=== PATIENT | male | born 1960 | race Native Hawaiian/Other Pacific Islander ===

== ENCOUNTER 2018-04-04 00:14 | Observation (INO) | payer OTHER ==
[~2018-04-04] VITALS: Ht 175.3 cm; Wt 92.3 kg
[2018-04-04] VITALS (9 sets, daily range): BP systolic 168–259; BP diastolic 85–152; TEMP 97.3–98.6; Ht 175.3 cm; Wt 92.3 kg
[2018-04-04 01:10] LABS: PLATELET COUNT 180 K/uL (142-355)
[2018-04-04 01:19] LABS: POTASSIUM 3.5 mmol/L (3.6-5.2)
--- NOTE | 2018-04-04 03:05 | NUR ---
RECEIVED FROM ER VIA WC. ALERT AND ORIENTED X 3. EDUCATION GIVEN REGARDING CALL LIGHT AND BED CONTROLS. INSTRUCTED TO KEEP BED IN LOW POSITION. PATIENT VERBALIZED UNDERSTANDING. 20G TO RAC INTACT WITH NS BOLUS INFUSING PRESENTLY. 18FR FC TO BSC DRAINING RED CLODY URINE. FAMILY IS AT BEDSIDE. REFER TO ADMISSION ASSESSMENT FOR FURTHER DETAILS.
--- NOTE | 2018-04-04 03:40 | NUR ---
PATIENT'S BP IS 203/[address] ESCALONA NOTIFIED. NO NEW ORDERS RECEIVED. WILL CONTINUE TO MONITOR.
[2018-04-04 05:40] LABS: PLATELET COUNT 175 K/uL (142-355)
[2018-04-04 05:46] LABS: POTASSIUM 3.7 mmol/L (3.6-5.2)
--- NOTE | 2018-04-04 15:05 | NUR ---
LAMBERT D/C PER PT REQUEST AND PHYSCIAN ORDERS. URINE DARK RED. NO OTHER APPARENT PROBLEMS NOTED. WILL CONINUE TO MONITER
--- NOTE | 2018-04-04 18:39 | NUR ---
PT BP 204/118. BP REPORTED CHANCE LILLY. CARON ORDERED HCTZ TO START AT 2100. SHALINI STATES TO USE CLONIDINE LAST RESORT SO REOUND HYPERTENSION DOES NOT OCCUR. WILL CONTINE TO MONITER PT.
--- NOTE | 2018-04-04 20:15 | NUR ---
DR STEELE NOTIFIED OF PATIENT'S BP 213/109 AND BNP OF 300. ORDERS RECEIVED FOR MEDICATION AND TO DECREASE IVF TO 100CC/HR. WILL CONTINUE TO MONITOR.
--- NOTE | 2018-04-04 20:45 | NUR ---
CALLED TO PATIENT'S ROOM AND FOUND HIM LYING ON HIS SIDE. HE LIFTED THE COVER AND STATED HE HAD "PEED OUT SOME BLOOD CLOTS'. 2 CLOTS APPOX 3CM NOTED WELL A FEW SMALL CLOTS. PATIENT STATES THAT HE FEELS SOME RELIEF NOW. WILL CONTINUE TO MONITOR.
--- NOTE | 2018-04-04 22:30 | NUR ---
WENT TO PATIENT'S ROOM TO REASSESS BP WHICH WAS 168/86. WHILE IN ROOM PATIENT VOIDED A LARGE AMOUNT OF PINK TINGED URINE ONTO LINEN SAVER. NO CLOTS WERE PRESENT. WILL CONTINUE TO MONITOR.
[2018-04-05 00:04] VITALS: BP 168/86; TEMP 98.6
[2018-04-05 03:55] VITALS: BP 159/83; TEMP 98.7
[2018-04-05 06:24] LABS: POTASSIUM 3.4 mmol/L (3.6-5.2)
[2018-04-05 06:26] LABS: PLATELET COUNT 161 K/uL (142-355)
[2018-04-05 16:22] VITALS: BP 175/91; TEMP 98.2
[2018-04-05 19:58] VITALS: BP 146/69; TEMP 98.5
--- NOTE | 2018-04-05 21:30 | NUR ---
PT C/O BACK PAIN 02/17 AT THIS TIME. STATES "NOTHING HAS HELPED" AND "THIS DOCTOR ISN'T DOING ANYTHING FOR ME"
--- NOTE | 2018-04-05 21:36 | NUR ---
NORCO 5/325 PO ADMINISTERED AT THIS TIME FOR PAIN. PT STILL COMPLAINS THAT THIS PAIN MEDICINE WONT WORK BUT AGREES TO TAKE ANYWAYS. PT C/O HOT WATER IN SHOWER NOT WORKING. TOLD PT THAT I COULD MOVE HIM TO ANOTHER ROOM ON THE FLOOR THAT HAD A BETTER WORKING SHOWER. PT STATES "NO IT WON'T HELP WITH MY PAIN ANYWAYS" EDUCATES PATIENT ON TIME THAT IT WILL TAKE FOR PAIN MEDICINE TO TAKE EFFECT. WILL ATTEMPT TO CALL ER MD FOR BREAKTHROUGH PAIN MEDICINE.
--- NOTE | 2018-04-05 21:45 | NUR ---
CALLED DR. GONZALEZ TO ATTEMPT TO OBTAIN AN ORDER FOR NEW PAIN MEDICINE. ORDER RECEIVED TO INCREASE NORCO TO Q4H PRN.
--- NOTE | 2018-04-05 22:05 | NUR ---
PT STILL COMPLAINS OF 10/10 PAIN AND STATES THAT "I WANT TO SIGN OUT AMA THE DOCTOR ISN'T DOING ANYTHING FOR ME" TOLD PT OF NEW PAIN MEDICINE ORDER. PT STILL STATES HE WANTS TO LEAVE. DR. GONZALEZ NOTIFIED OF PT WANTING TO LEAVE AMA. NO NEW ORDERS OBTAINED FOR PAIN MEDICINE.
--- NOTE | 2018-04-05 22:10 | NUR ---
20G IV TO THE RAC D/C WITH TIP INTACT
--- NOTE | 2018-04-05 22:10 | NUR ---
PT EDUCATED ON AMA FORM AND WAS SIGNED BY PT AT THIS TIME
== END 2018-04-05 22:10 | disposition left against medical advice (07) ==
LOC: ED 00:14 → MED/SURG 02:26
PROVIDERS: ADMIT Family Medicine
DX: I16.0 Hypertensive urgency (principal); R31.9 Hematuria, unspecified; R33.8 Other retention of urine; N17.9 Acute kidney failure, unspecified
CPT/HCPCS: 36415; 51702; 80048; 80053; 81000; 83880; 84153; 84484; 85027; 87088; 93005; 96365; 96366; 96375; 99220; 99284; G0378; J0360; J0696; J2060; J7040